=== PATIENT | male | born 1945 | race Caucasian/White ===

== ENCOUNTER → 2017-03-21 | Outpatient (CLI) | payer MEDICARE, OTHER | END | disposition home or self-care (01) | LOC: LAB.O 07:09 | PROVIDERS: ATTEND Family Medicine | DX: E03.9 Hypothyroidism, unspecified (principal); E78.5 Hyperlipidemia, unspecified; E11.9 Type 2 diabetes mellitus without complications ==

== ENCOUNTER → 2017-04-22 | Outpatient (CLI) | payer MEDICARE, OTHER | END | disposition home or self-care (01) | LOC: LAB.O 11:38 | PROVIDERS: ATTEND Urology | DX: D49.4 Neoplasm of unspecified behavior of bladder (principal) ==

== ENCOUNTER → 2017-08-29 | Outpatient (CLI) | payer MEDICARE, OTHER | LOC: LAB.O 07:29 | PROVIDERS: ATTEND Family Medicine | DX: R73.03 Prediabetes (principal); E78.2 Mixed hyperlipidemia; I10 Essential (primary) hypertension ==

== ENCOUNTER → 2018-07-21 | Outpatient (CLI) | payer MEDICARE, OTHER | LOC: LAB.O 08:52 | PROVIDERS: ATTEND Family Medicine | DX: I11.9 Hypertensive heart disease without heart failure (principal); E78.5 Hyperlipidemia, unspecified; R73.03 Prediabetes; C67.6 Malignant neoplasm of ureteric orifice; N40.0 Benign prostatic hyperplasia without lower urinary tract symptoms; Z13.1 Encounter for screening for diabetes mellitus ==

== ENCOUNTER → 2019-03-10 | Outpatient (CLI) | payer MEDICARE, OTHER | LOC: LAB.O 07:12 | PROVIDERS: ATTEND Family Medicine | DX: E78.2 Mixed hyperlipidemia (principal); I10 Essential (primary) hypertension ==

== ENCOUNTER → 2019-04-23 | Outpatient (CLI) | payer MEDICARE, OTHER ==
--- NOTE | 2019-04-23 16:00 | US ---
EXAM DESCRIPTION: Extremity,Lower Stevan Arteries: Ultrasound. CLINICAL HISTORY: Peripheral vascular disease COMPARISON: None. TECHNIQUE: Doppler evaluation of the bilateral lower extremity arterial flow waveforms and velocities. FINDINGS: Arterial waveforms in the right lower extremity are all triphasic or biphasic.. Arterial waveforms in the left lower extremity are all triphasic or biphasic. Comments: Velocities are relatively symmetric bilaterally. IMPRESSION: Doppler evaluation of the bilateral lower extremity arterial systems showing no evidence of significant atherosclerotic occlusive disease. Electronically signed by: Octaviano Dean MD 04/23/2019 3:58 PM [employer] WORKER
== END ==
LOC: US 10:19
PROVIDERS: ATTEND Psychiatry & Neurology Neurology
DX: I73.9 Peripheral vascular disease, unspecified (principal); M48.061 Spinal stenosis, lumbar region without neurogenic claudication

== ENCOUNTER → 2019-05-07 | Outpatient (CLI) | payer MEDICARE, OTHER ==
--- NOTE | 2019-05-07 14:08 | MRI ---
EXAM DESCRIPTION: Lumbar Spine w/o Contrast CLINICAL HISTORY: 73 years Male, SPINAL STENOSIS LUMBAR REGION COMPARISON: None available. TECHNIQUE: Multiplanar multiecho imaging of the lumbar spine was performed without intravenous contrast administration. FINDINGS: Straightening of the normal lordotic curvature of the lumbar spine. The vertebral body heights are well-maintained with no acute compression deformity. Multilevel intervertebral disc space narrowing is noted. The conus medullaris terminates at L1-L2 intervertebral disc space. The visualized spinal cord demonstrates no signal abnormality. L1-L2: Bilateral facet arthropathy. No canal stenosis or neural foraminal narrowing. L2-L3: Bilateral facet arthropathy. No central canal stenosis or neural foraminal narrowing. L3-L4: Bilateral facet arthropathy. No central canal stenosis. Mild right and [id number] left neural foraminal narrowing. L4-L5: 4 mm diffuse disc bulge with a central annular fissure. No central canal stenosis. Moderate to severe right and moderate left neural foraminal narrowing is noted. L5-S1: Disc desiccation and loss of disc height. 4 mm diffuse disc bulge and facet arthropathy with no central canal stenosis. Moderate bilateral neural foraminal narrowing is noted. The visualized prevertebral and paravertebral soft tissues appear unremarkable. IMPRESSION: Multilevel degenerative disc disease and facet arthropathy throughout the lumbar spine with changes worse at L4-L5 and L5-S1 levels as described above. Electronically signed by: Hiwot Moseley MD 05/07/2019 2:06 PM [employer]UCK [employer]ER
== END ==
LOC: MRI 09:00
PROVIDERS: ATTEND Psychiatry & Neurology Neurology
DX: M48.061 Spinal stenosis, lumbar region without neurogenic claudication (principal); M51.36 Other intervertebral disc degeneration, lumbar region; M51.37 Other intervertebral disc degeneration, lumbosacral region

== ENCOUNTER 2020-04-17 10:33 | Emergency (ER) | payer MEDICARE, OTHER ==
--- NOTE | 2020-04-17 11:25 | ED.PDOC ---
History of Present Illness - General Chief Complaint: Blood Pressure Problem Stated Complaint: elevated blood pressure Time Seen by Provider: 04/17/20 11:23 Source: patient - History of Present Illness Initial Comments: PATIENT ADMITS HE HAS BECOME FIXATED ON HIS BLOOD PRESSURE READINGS, HE HAS RECURRENT ANXIETY ATTACKS AND HE CHECKS HIS BLOOD PRESSURE, IT IS ELEVATED, MAKING HIM MORE ANXIOUS, AND FURTHER ELEVATING HIS BLOOD PRESSURE. THE HAS BEEN RECURRENT DAILY FOR SEVERAL DAYS. Allergies/Adverse Reactions: Allergies NO KNOWN ALLERGY Allergy (Verified 04/17/20 11:03) Review of Systems - Review of Systems Constitutional: States: no symptoms reported EENTM: States: no symptoms reported Respiratory: States: no symptoms reported Cardiology: States: no symptoms reported Gastrointestinal/Abdominal: States: no symptoms reported Genitourinary: States: no symptoms reported Past Medical History (General) - Patient Medical History Hx Stroke: Yes Hx Hypertension: Yes - Social History Hx Alcohol Use: Yes - Activities of Daily Living Hospice Agency (if applicable):: None - Female History Patient is a Female of Child Bearing Age (10 -59 yrs old): No Family Medical History - Family History Mother Family History: Unknown Physical Exam - Physical Exam General Appearance: Agitated Ears, Nose, Throat: hearing grossly normal Neck: non-tender Respiratory: chest non-tender Cardiovascular/Chest: normal peripheral pulses, regular rate, rhythm, no edema, no gallop, no JVD, no murmur Gastrointestinal/Abdominal: normal bowel sounds, non tender, soft Departure - Departure Clinical Impression: Panic attack Hypertension Qualifiers: Hypertension type: essential hypertension Qualified Code(s): I10 - Essential (primary) hypertension Disposition: Discharge to Home or Self Care Departure Forms: ED Discharge - Pt. Copy, Patient Portal Self Enrollment Instructions: DI for High Blood Pressure Referrals: Bryan Perrin MD [Primary Care Provider] - 1-2 Weeks Additional Instructions: INCREASE DAILY EXERCISE, PRACTICE MEDITATION DAILY, FOLLOW UP WITH YOUR PCP, RESUME USUAL DOSE OF BLOOD PRESSURE MEDICATION, DON'T TAKE YOUR BLOOD PRESSURE SO OFTEN. ONCE A WEEK IS ADEQUATE.
[2020-04-17 11:45] VITALS: BP 161/79; TEMP 98.1; O2SAT 98
== END 2020-04-17 11:40 | disposition home or self-care (01) ==
LOC: ER 10:33
DX: F41.0 Panic disorder [episodic paroxysmal anxiety] (principal); I10 Essential (primary) hypertension; Z86.73 Personal history of transient ischemic attack (TIA), and cerebral infarction without residual deficits